=== PATIENT | male | born 1970 | race Caucasian/White ===

== ENCOUNTER 2018-01-02 22:21 | Emergency (ER) | payer OTHER ==
[~2018-01-02] VITALS: Ht 167.6 cm; Wt 81.6 kg
[2018-01-02 22:35] VITALS: BP_SYST 145
[2018-01-02 23:07] VITALS: BP_SYST 135
== END 2018-01-02 23:07 | disposition home or self-care (01) ==
LOC: SED 22:21
DX: S01.01XA Laceration without foreign body of scalp, initial encounter (principal); R03.0 Elevated blood-pressure reading, without diagnosis of hypertension; W26.8XXA Contact with other sharp object(s), not elsewhere classified, initial encounter; Y93.89 Activity, other specified; Y92.89 Other specified places as the place of occurrence of the external cause; Y99.8 Other external cause status
CPT/HCPCS: 99283

== ENCOUNTER 2018-01-10 17:36 | Emergency (ER) | payer OTHER ==
[~2018-01-10] VITALS: Ht 167.6 cm; Wt 83.9 kg
[2018-01-10 17:58] VITALS: BP_SYST 143
[2018-01-10 18:21] VITALS: BP_SYST 135
== END 2018-01-10 18:21 | disposition home or self-care (01) ==
LOC: SED 17:36
DX: S01.01XD Laceration without foreign body of scalp, subsequent encounter (principal); I10 Essential (primary) hypertension; W22.8XXD Striking against or struck by other objects, subsequent encounter
CPT/HCPCS: 99281